=== PATIENT | male | born 1945 | race Caucasian/White ===

== ENCOUNTER 2024-03-21 09:29 | Day surgery (SDC) | payer MEDICAID ==
[2024-03-15 14:49] LABS: Absolute Basophils 0.1 K/uL (0-0.5); Absolute Eosinophils 0.1 K/uL (0-0.5); Absolute Lymphocytes (CBC) 1.3 K/uL (0.7-4.9); Absolute Monocytes 0.7 K/uL (0.1-1.3); Absolute Neutrophil 6.2 K/uL (1.8-8.0); Basophils % 0.7 % (0-1.3); Eosinophils % 1.2 % (0-4.4); Hematocrit 45.1 % (39.6-49.0); Hemoglobin 14.9 g/dL (13.6-17.9); Lymphocytes % 16.1 % (15.3-44.8); MCH 33.3 pg (27.0-35.0); MCHC 33.1 g/dL (32.0-36.0); MCV 100.7 fL (80-100); MPV 7.6 fL (7.6-11.3); Monocytes % 8.2 % (3.3-12.3); Neutrophils % 73.8 % (41.7-73.7); Nucleated Red Blood Cells % 0.1 % (0-0); Platelets 205 thou/uL (152-406); RBC Red Blood Cell Count 4.47 M/uL (4.33-5.43); Red Cell Distribution Width 14.5 % (12.1-15.2)
[2024-03-15 14:59] LABS: PT Prothrombin Time 11.1 SECONDS (9.4-12.5); PTT, Activated Partial Thromb 39.4 SECONDS (24.3-36.9); Protime INR 1.01
--- NOTE | 2024-03-15 15:20 | RAD REPORT ---
EXAM DESCRIPTION: Rachel Pa And Lat (2 Views)03/15/2024 2:45 pm CLINICAL HISTORY: Preop for cardiac catheterization COMPARISON: None FINDINGS: Lungs are moderately to markedly hyperaerated consistent with COPD. The lungs appear clear of acute infiltrate. The heart is normal size. Pleural calcifications IMPRESSION: COPD without visualization of an acute abnormality
--- NOTE | 2024-03-20 12:20 | EKG ---
Test Date: 2024-03-15 Test Time: 14:36:06 It Solutions Architect: AMANDA MEASUREMENT RESULTS: Intervals: Rate: 64 NC: 168 QRSD: 106 QT: 424 QTc: 437 [place]: P: 83 NC: 168 QRS: 37 T: 24 INTERPRETIVE STATEMENTS: Normal sinus rhythm Left ventricular hypertrophy with repolarization abnormality Cannot rule out Septal infarct, age undetermined Abnormal ECG No previous ECG available for comparison Electronically Signed On 03-20-24 12:14:22 CDT by Sriram Humphreys
[2024-03-21] MEDS: NA CHLORIDE 0.9% 500 ML ONE (09:35)
[2024-03-21] MEDS ORDERED: LIDOCAINE 1% 20 ML MDV ONE ×2 (10:33→11:29)
[2024-03-21] MEDS ORDERED: MIDAZOLAM HCL 2 MG/2 ML INJ ONE (10:33)
[2024-03-21] MEDS ORDERED: VERAPAMIL HCL 10 MG/4 ML VIAL IV ONE (10:33)
[2024-03-21] MEDS ORDERED: HEPA 1000U/500MLS 2,000 UNIT/1,000 ML BAG IV ONE (10:33)
[2024-03-21] MEDS ORDERED: ATROPINE SULF 1 MG/10 ML SYR IV ONE (10:33)
[2024-03-21] MEDS ORDERED: FENTANYL CITR 100 MCG/2 ML ONE (10:33)
[2024-03-21] MEDS ORDERED: ASPIRIN 325 MG TAB ONE (10:34)
[2024-03-21] MEDS ORDERED: TICAGRELOR 90 MG TABLET PO ONE (10:34)
[2024-03-21] MEDS ORDERED: FLUMAZENIL 0.1 MG/ML (5 mL VIAL) IV ONE (10:34)
[2024-03-21] MEDS ORDERED: CLOPIDOGREL 75 MG TABLET ONE (10:34)
[2024-03-21] MEDS ORDERED: NALOXONE 0.4 MG/ML VIAL ONE (10:34)
[2024-03-21] MEDS ORDERED: HEPARIN 5000 UNIT/ML 1 ML VIAL ONE (10:34)
[2024-03-21] MEDS ORDERED: HEPARIN 10,000 UNIT/10 ML VIAL IV ONE (10:34)
[2024-03-21 14:00] VITALS: BP 144/64; O2SAT 96
== END 2024-03-21 14:02 | disposition home or self-care (01) ==
LOC: CCL 09:29
PROVIDERS: ATTEND Internal Medicine
DX: I25.10 Atherosclerotic heart disease of native coronary artery without angina pectoris (principal); I35.0 Nonrheumatic aortic (valve) stenosis; Z53.8 Procedure and treatment not carried out for other reasons; I65.21 Occlusion and stenosis of right carotid artery; I73.9 Peripheral vascular disease, unspecified; I10 Essential (primary) hypertension; E78.2 Mixed hyperlipidemia; Z95.5 Presence of coronary angioplasty implant and graft; F17.210 Nicotine dependence, cigarettes, uncomplicated; Z79.899 Other long term (current) drug therapy
CPT/HCPCS: 93005; 85025; 80048; 36415; 83721; 85610; 85730; 71046; 93460; 76937; C1893; Q9966; J1644; J2001; J2250; J3010; J7040; 99152; 99153; J0461; J2310

== ENCOUNTER 2024-05-23 11:45 | Day surgery (SDC) | payer MEDICAID ==
[2024-05-17 14:03] LABS: Absolute Eosinophils 0.4 K/uL (0-0.5); Absolute Lymphocytes (CBC) 1.5 K/uL (0.7-4.9); Absolute Monocytes 0.6 K/uL (0.1-1.3); Absolute Neutrophil 4.8 K/uL (1.8-8.0); Basophils % 0.7 % (0-1.3); Eosinophils % 5.1 % (0-4.4); Hematocrit 42.9 % (39.6-49.0); Lymphocytes % 20.2 % (15.3-44.8); MCH 33.2 pg (27.0-35.0); MCHC 32.6 g/dL (32.0-36.0); MCV 101.7 fL (80-100); MPV 7.7 fL (7.6-11.3); Monocytes % 8.6 % (3.3-12.3); Neutrophils % 65.4 % (41.7-73.7); Platelets 197 thou/uL (152-406); RBC Red Blood Cell Count 4.22 M/uL (4.33-5.43); Red Cell Distribution Width 14.3 % (12.1-15.2)
[2024-05-17 14:07] LABS: PT Prothrombin Time 10.8 SECONDS (9.4-12.5); Protime INR 0.96
[2024-05-17 14:18] LABS: Anion Gap 8.1 mEq/L (5.0-15.0); Potassium 4.1 mEq/L (3.5-5.1)
--- NOTE | 2024-05-20 17:09 | EKG ---
Test Date: 2024-05-17 Test Time: 13:52:37 Linotype Mechanic: AMANDA MEASUREMENT RESULTS: Intervals: Rate: 73 WV: 180 QRSD: 100 QT: 398 QTc: 438 [place]: P: 88 WV: 180 QRS: 49 T: 13 INTERPRETIVE STATEMENTS: Sinus rhythm with occasional premature ventricular complexes Left ventricular hypertrophy with repolarization abnormality Abnormal ECG Compared to ECG 04/08/2024 15:06:01 Ventricular premature complex(es) now present Left ventricular hypertrophy now present Early repolarization now present Myocardial infarct finding no longer present Electronically Signed On 05-20-24 17:01:28 CDT by Derrek Felipe
[2024-05-23] MEDS ORDERED: NA CHLORIDE 0.9% 500 ML ONE ×2 (11:49→12:51)
[2024-05-23] MEDS ORDERED: LIDOCAINE 1% 20 ML MDV ONE (13:43)
[2024-05-23] MEDS ORDERED: HEPARIN 10,000 UNIT/10 ML VIAL IV ONE (13:43)
[2024-05-23] MEDS ORDERED: ATROPINE SULF 1 MG/10 ML SYR IV ONE (13:44)
[2024-05-23] MEDS ORDERED: TICAGRELOR 90 MG TABLET PO ONE (13:44)
[2024-05-23] MEDS ORDERED: ASPIRIN 325 MG TAB ONE (13:44)
[2024-05-23] MEDS ORDERED: HEPARIN 5000 UNIT/ML 1 ML VIAL ONE (13:44)
[2024-05-23] MEDS ORDERED: CLOPIDOGREL 75 MG TABLET ONE (13:44)
[2024-05-23] MEDS ORDERED: VERAPAMIL HCL 10 MG/4 ML VIAL IV ONE (13:45)
[2024-05-23] MEDS ORDERED: FENTANYL CITR 100 MCG/2 ML ONE (13:46)
[2024-05-23] MEDS ORDERED: MIDAZOLAM HCL 2 MG/2 ML INJ ONE (13:46)
[2024-05-23 17:45] VITALS: O2SAT 97
[2024-05-23 18:21] VITALS: BP 119/62
--- NOTE | 2024-05-23 19:42 | OP ---
Date of Procedure: 05/23/2024 Surgeon: DENIS CAMPBELL Procedures Performed: 1.Selective coronary angiogram. 2.Left heart catheterization. 3.Right heart catheterization. Indication: Aortic valve stenosis evaluation. Access: 1.Right radial artery 6-Sammarinese closed with TR band. 2.Right IJ 7-Sammarinese closed with manual pressure. Complications: None. Bleeding: Less than 50 mL. Anesthesia: Total sedation time was 1 hour. Description Of Procedure: After risks, benefits, and alternatives were explained, patient agreed to the procedure and signed informed consent. The [facility] prepped and draped in the usual sterile fashion. Then, I accessed right radial artery using pediatric micropuncture kit, placed 6-Sammarinese Slender sheath and then I accessed right IJ using a micr opuncture kit and ultrasound guidance, and placed 7-Sammarinese [place] sheath. Then I took a balloon ti pped 7-Sammarinese [place] catheter through the IJ access into the right atrium, right ventricle, pulmonary a rtery and wedge, obtained waveform and the pressure and then obtained cardiac output using the thermo dilutional method and then removed the [place] and then took a 5-Sammarinese [place] 4.0 catheter over a J-wire into the aortic root, engaged left main, then right coronary artery, took standard views and then I crossed the aortic valve and sent a [place] catheter and did simultaneous LV and aortic pressures an d obtained a mean gradient and pullback did not record any internal gradient. Then, I removed the ca theter and the radial sheath was removed and TR band was placed and the IJ sheath was removed and the manual pressure was used for closure with good hemostasis. Findings: 1.Coronary angiogram. a.Left main is very large and normal. b.LAD; proximal 30% to 40%, but it is a large vessel. Rest of LAD is normal. Normal diagonal branc hes. c.Left circumflex has widely patent proximal to mid stent and then the mid to distal left circumflex , there is a focal 50% stenosis. d.RCA; very large and dominant, widely patent proximal RCA stent, mid RCA has focal 40% stenosis. T he PLB and PDA appears with luminal irregularities. e.LVEDP is borderline at 40 mmHg. 2.Right heart cath numbers: RA pressure was 5. RV pressure was 23/2, mean of 7. PA pressure was 2 3/6, mean of 14. Pulmonary wedge pressure was 7, and LVEDP was 14. Cardiac output average was 4.74 L/minute. The mean gradient across the aortic valve was 18 mmHg and the aortic valve area was 1.18 s q cm. Conclusion: 1.Moderate coronary artery disease. 2.Moderate aortic valve stenosis. 3.Normal filling pressures. Recommendation: Re-evaluate the aortic valve in 6 months. SR/MODL Voice ID: [id number] Report ID: [id number]
== END 2024-05-23 18:10 | disposition home or self-care (01) ==
LOC: CCL 11:45
PROVIDERS: ATTEND Internal Medicine
DX: I35.0 Nonrheumatic aortic (valve) stenosis (principal); I25.10 Atherosclerotic heart disease of native coronary artery without angina pectoris; I65.23 Occlusion and stenosis of bilateral carotid arteries; I70.223 Atherosclerosis of native arteries of extremities with rest pain, bilateral legs; I10 Essential (primary) hypertension; E78.2 Mixed hyperlipidemia; Z95.1 Presence of aortocoronary bypass graft; F17.210 Nicotine dependence, cigarettes, uncomplicated; Z79.899 Other long term (current) drug therapy
CPT/HCPCS: 93005; 85025; 80048; 36415; 85610; 85730; 93460; 76937; C1893; Q9966; J1644; J2001; J2250; J3010; J7040 ×2; 99152; 99153; J0461

== ENCOUNTER 2025-07-11 17:22 | Emergency (ER) | payer MEDICAID ==
[2025-07-11] MEDS ORDERED: LEVALBUTEROL 1.25 MG/3 ML NEB ONE (18:01)
[2025-07-11 18:35] LABS: Influenza A Ag Negative; Influenza B Ag Negative; SARS-CoV-2 Antigen Rapid Res Negative (Negative)
[2025-07-11 18:36] LABS: Absolute Lymphocytes (CBC) 1.1 K/uL (0.7-4.9); Hematocrit 39.4 % (39.6-49.0); Hemoglobin 13.2 g/dL (13.6-17.9); MCH 32.5 pg (27.0-35.0); MCHC 33.6 g/dL (32.0-36.0); MCV 96.7 fL (80-100); MPV 8.1 fL (7.6-11.3); Nucleated RBC Absolute Count 0.0 (0-0); Nucleated Red Blood Cells % 0.1 % (0-0); RBC Red Blood Cell Count 4.07 M/uL (4.33-5.43); White Blood Count 9.00 thou/uL (4.3-10.9)
[2025-07-11 19:04] LABS: NT PRO-BNP 2062.0 pg/mL (<450); Troponin High Sensitivity 48.7 pg/mL (<58.9)
[2025-07-11 19:10] LABS: PT Prothrombin Time 12.6 SECONDS (10-13.0); PTT, Activated Partial Thromb 31.1 SECONDS (27.2-37.4); Protime INR 1.12
[2025-07-11 19:12] LABS: ALT/SGPT 22.0 U/L (16-61); AST/SGOT 18.0 U/L (15-37); Alkaline Phosphatase 79.0 U/L (45-117); Anion Gap 7.7 mEq/L (5.0-15.0); BUN Blood Urea Nitrogen 12.0 mg/dL (7-18); Glucose Level 107.0 mg/dL (74-106); Potassium 3.7 mEq/L (3.5-5.1)
--- NOTE | 2025-07-11 19:12 | RAD REPORT ---
EXAMINATION: ONE VIEW CHEST XR CLINICAL INDICATION: Male, 80 years old.,Dyspnea;Cough TECHNIQUE: Frontal chest projection is submitted. Examination is limited by patient positioning and t echnique. COMPARISON: 03/15/2024 FINDINGS: The lungs are well inflated and clear. No pneumothorax or sizable effusion. The heart is normal in s ize. Mediastinal contours are unchanged, with calcified bilateral hilar nodules. IMPRESSION: No acute intrathoracic abnormalities.
[2025-07-11 19:13] LABS: Albumin 3.2 g/dL (3.4-5.0); Albumin/Globulin Ratio 0.9 (1.1-1.8); Globulin 3.7 g/dL (2.3-3.5)
--- NOTE | 2025-07-11 21:23 | EDPHYS ---
Physician Documentation [facility] Name: Hair Ding Age: 80 yrs Sex: Male : 1945 Arrival Date: 07/11/2025 Time: 17:22 Bed 4 Private MD: ED Physician Chris Spence HPI: 07/11 18:21 This 80 yrs old Male presents to ER via Wheelchair with complaints of Flu Symptoms, rn Sore Throat, Painful Cough. 18:21 Patient reports 5 days of cough, sore throat, myalgias, subjective fever and chills. No rn shortness of breath. Does have a long history of smoking but never diagnosed with COPD or needed nebulizer treatments. Denies any abdominal pain. No vomiting. 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 Historical: - Allergies: 17:31 No Known Allergies; ll1 - PMHx: 17:31 Hypertensive disorder; Hypercholesterolemia; Gout; ll1 - PSHx: 17:31 6 heart stents; aorta replaced; ll1 - Immunization history:: Adult Immunizations up to date. - Infectious Disease History:: Denies. - Social history:: Smoking status: Reported history of juuling and/or vaping. Patient/guardian denies using tobacco, Stopped _ months ago 16. - Family history:: not pertinent. - Hospitalizations: : No recent hospitalization is reported. ROS: 18:21 Constitutional: + subjective fever/chills Cardiovascular: Negative for chest pain, rn palpitations, and edema, Respiratory: + cough Abdomen/GI: Negative for abdominal pain, nausea, vomiting, diarrhea, and constipation, Neuro: Negative for headache, weakness, numbness, tingling, and seizure, Exam: 18:21 Constitutional: This is a well developed, well nourished patient who is awake, alert, rn and in no acute distress. Cardiovascular: Regular rate and rhythm. No pulse deficits. Loud systolic murmur (patient states known murmur" Respiratory: Mild tachypnea but speaking full sentences. No retractions. Abdomen/GI: Soft, non-tender MS/ Extremity: Pulses equal, no cyanosis. Neurovascular intact. Full, normal range of motion. Equal circumference. Neuro: Awake and alert, GCS 15 18:34 ECG was reviewed by the Attending Physician. rn Vital Signs: 17:33 BP 178 / 85; Pulse 98; Resp 17; Temp 98.5; Pulse Ox 98% on R/A; Weight 96.16 kg; Height ll1 6 ft. 5 in. ; Pain /10; 18:17 BP 143 / 73; Pulse 88; Resp 16; Pulse Ox 99% on R/A; kb4 20:20 BP 169 / 82; Pulse 90; Resp 18; Pulse Ox 92% on R/A; af3 21:37 BP 157 / 86; Pulse 93; Resp 18; Pulse Ox 95% on R/A; af3 17:33 Body Mass Index 25.14 (96.16 kg, 195.58 cm) ll1 17:33 Pain Scale: Adult ll1 MDM: 17:40 Medical Screening Exam initiated rn 21:26 Differential diagnosis: Allergic rhinitis, bronchitis, costochondritis, esophagitis, sp4 pleurisy, pneumonia. Data reviewed: vital signs, nurses notes, lab test result(s), radiologic studies, plain films. 21:37 ED course: EXAMINATION: ONE VIEW CHEST XR CLINICAL INDICATION: Male, 80 years sp4 old.,Dyspnea;Cough TECHNIQUE: Frontal chest projection is submitted. Examination is limited by patient positioning and technique. COMPARISON: 03/15/2024 FINDINGS: The lungs are well inflated and clear. No pneumothorax or sizable effusion. The heart is normal in size. Mediastinal contours are unchanged, with calcified bilateral hilar nodules. IMPRESSION: No acute intrathoracic abnormalities.. 07/11 17:51 Order name: BNP; Complete Time: 21:12 rn 07/11 17:51 Order name: Blood Culture Adult (2) rn 07/11 17:51 Order name: CBC with Diff; Complete Time: 18:43 rn 07/11 17:51 Order name: CMP; Complete Time: 21:12 rn 07/11 17:51 Order name: Lactate w/ 2H reflex if indic.; Complete Time: 21:12 07/11 17:51 Order name: Protime (+inr); Complete Time: 21:12 rn 07/11 17:51 Order name: Ptt, Activated; Complete Time: 21:12 rn 07/11 17:51 Order name: Troponin HS; Complete Time: 21:12 07/11 17:51 Order name: COVID-19 Ag + Flu A+B Ag; Complete Time: 18:43 rn 07/11 17:51 Order name: Group A Streptococcus Rapid; Complete Time: 18:43 rn 07/11 18:37 Order name: Throat Culture EDCT 07/11 17:51 Order name: Chest Single View XRAY; Complete Time: 21:12 rn 07/11 17:51 Order name: Accucheck; Complete Time: 18:17 rn 07/11 17:51 Order name: Cardiac monitoring; Complete Time: 18:17 rn 07/11 17:51 Order name: EKG - Nurse/Tech; Complete Time: 18:17 rn 07/11 17:51 Order name: IV Saline Lock - Large Bore; Complete Time: 18:17 rn 07/11 17:51 Order name: Labs collected and sent; Complete Time: 18:17 rn 07/11 17:51 Order name: O2 Per Protocol; Complete Time: 18:17 rn 07/11 17:51 Order name: O2 Sat Monitoring; Complete Time: 18:17 rn 07/11 17:51 Order name: Vital Signs; Complete Time: 18:17 rn EC:34 Rate is 93 beats/min. Rhythm is regular. QRS [place] is Normal. ID interval is normal. QRS rn interval is normal. QT interval is normal. No Q waves. T waves are Normal. No ST changes noted. Clinical impression: NSR w/ Non-specific ST/T Changes. Interpreted by me. Reviewed by me. Administered Medications: 18:17 Drug: Levalbuterol Inhalation 1.25 mg Inhalation once Route: Inhalation; kb4 20:24 Follow up: Response: No adverse reaction af3 Disposition Summary: 07/11/25 21:23 Discharge Ordered Notes: Location: Home sp4 Problem: new sp4 Symptoms: have improved sp4 Condition: Stable sp4 Diagnosis - Acute pharyngitis, acute cough, acute upper respiratory infection, sp4 Followup: sp4 - With: Private Physician - When: 7 - 10 days - Reason: Recheck today's complaints Discharge Instructions: - Discharge Summary Sheet sp4 - Pharyngitis, [id number] sp4 - Viral Illness, Adult sp4 Forms: - Patient Portal Instructions sp4 Prescriptions: - Ventolin HFA 90 mcg/actuation Inhalation HFA Aerosol Inhaler - inhale 2 puff INHALATION route 4 times per day as needed for shortness of sp4 breath or wheezing; 1 unit; Refills: 0, Product Selection Permitted - dextromethorphan-guaifenesin 20-400 mg Oral tablet - take 1 tablet ORAL route every 4 hours as needed for cough; 60 tablet; Refills: sp4 0, Product Selection Permitted - Ibuprofen 600 mg Oral Tablet - take 1 tablet ORAL route every 6 hours As needed take with food; 30 tablet; sp4 Refills: 0, Product Selection Permitted - Zithromax Z-Jackson 250 mg Oral Tablet - take 1 tablet ORAL route as directed for 5 days Day 1 - take two (2) tablets sp4 one time. Day 2, 3, 4 , 5 take one (1) tablet once daily.; 6 tablet; Refills: 0, Product Selection Permitted Signatures: Dispatcher [employer] EDMS Surinder Hunt MD MD rn Lewis, Lynsay, RN RN ll1 Chris Spence MD MD sp4 Brit aPce RN RN kb4 Elizabeth Dodson RN af3 Corrections: (The following items were deleted from the chart) 17:52 17:52 PROBNP+C.LAB.BRZ ordered. EDCT EDMS 17:52 17:52 BLOOD CULTURE*+BA.LAB.BRZ ordered. EDMS EDMS 17:52 17:52 CBC+H.LAB.BRZ ordered. EDCT EDMS 17:52 17:52 COMPREHENSIVE METABOLIC PANEL+C.LAB.BRZ ordered. EDCT EDMS 17:52 17:52 LACTATE+C.LAB.BRZ ordered. EDCT EDMS 17:52 17:52 PROTIME (+INR)+COAG.LAB.BRZ ordered. EDCT EDMS 17:52 17:52 PTT, ACTIVATED+COAG.LAB.BRZ ordered. EDCT EDMS 17:52 17:52 Troponin High Sensitivity+C.LAB.BRZ ordered. EDCT EDMS 17:52 17:52 COVID-19 Ag + Flu A+B Ag+I.LAB.BRZ ordered. EDCT EDMS 17:52 17:52 Group A Streptococcus Rapid Sc+I.LAB.BRZ ordered. EDCT EDMS 17:52 17:52 Chest Single View+RAD.RAD.BRZ ordered. EDCT EDMS 18:22 18:21 Patient reports 5 days of cough, sore throat, myalgias, subjective fever and rn chills. No shortness of breath. Does have a long history of smoking but never diagnosed with COPD or needed nebulizer treatments. Denies any abdominal pain. No vomiting.. rn
--- NOTE | 2025-07-11 21:23 | ER ---
Nurse's Notes [facility] Name: Hair Ding Age: 80 yrs Sex: Male : 1945 Arrival Date: 07/11/2025 Time: 17:22 Bed 4 Private MD: Diagnosis: Acute pharyngitis, acute cough, acute upper respiratory infection, Presentation: 07/11 17:33 Chief complaint: Patient states: Sore throat, painful cough since Monday. Just not ll1 getting better yet. No appetite and has diarrhea. Coronavirus screen: Client denies travel out of the [place] in the last 14 days. congestion, cough unrelated to allergies, difficulty breathing, fatigue, Client presents with at least one sign or symptom that may indicate coronavirus-19. Standard/surgical mask placed on the client. Ebola Screen: Patient denies travel to an Ebola-affected area in the 21 days before illness onset. Initial Sepsis Screen: Does the patient meet any 2 criteria? No. Patient's initial sepsis screen is negative. Does the patient have a suspected source of infection? No. Patient's initial sepsis screen is negative. Risk Assessment: Do you want to hurt yourself or someone else? Patient reports no desire to harm self or others. Onset of symptoms was July 07, 2025. 17:33 Method Of Arrival: Wheelchair ll1 17:33 Acuity: KIERA 3 ll1 Historical: - Allergies: 17:31 No Known Allergies; ll1 - PMHx: 17:31 Hypertensive disorder; Hypercholesterolemia; Gout; ll1 - PSHx: 17:31 6 heart stents; aorta replaced; ll1 - Immunization history:: Adult Immunizations up to date. - Infectious Disease History:: Denies. - Social history:: Smoking status: Reported history of juuling and/or vaping. Patient/guardian denies using tobacco, Stopped _ months ago 16. - Family history:: not pertinent. - Hospitalizations: : No recent hospitalization is reported. Screenin:49 [facility] ED Fall Risk Assessment (Adult) History of falling in the last 3 months, kb4 including since admission No falls in past 3 months (0 pts) Confusion or Disorientation No (0 pts) Intoxicated or Sedated No (0 pts) Impaired Gait No (0 pts) Mobility Assist Device Used No (0 pt) Altered Elimination No (0 pt) Score/Fall Risk Level 0 - 2 = Low Risk. Abuse screen: Denies threats or abuse. Denies injuries from another. Nutritional screening: No deficits noted. Tuberculosis screening: No symptoms or risk factors identified. Assessment: 17:49 General: Appears in no apparent distress. uncomfortable, Behavior is calm, cooperative. kb4 Pain: Complains of pain in sinuses, chest, throat Pain does not radiate. Pain began 2-3 days ago. Cardiovascular: Patient's skin is warm and dry. Respiratory: Airway is patent Respiratory effort is even, unlabored, Respiratory pattern is regular, symmetrical. Derm: Skin is pink, warm \T\ dry. 19:15 General: Appears in no apparent distress. comfortable, well groomed, well developed, af3 Behavior is calm, cooperative, appropriate for age. Pain: Denies pain. Neuro: Level of Consciousness is awake, alert, obeys commands, Oriented to person, place, time, situation, Appropriate for age. Cardiovascular: Patient's skin is warm and dry. Respiratory: Airway is patent Respiratory effort is even, unlabored, Respiratory pattern is regular, symmetrical. Derm: Skin is intact, Skin is pink, warm \T\ dry. 20:30 Reassessment: Patient appears in no apparent distress at this time. No changes from af3 previously documented assessment. Patient and/or family updated on plan of care and expected duration. Pain level reassessed. 21:37 Reassessment: Patient appears in no apparent distress at this time. No changes from af3 previously documented assessment. Patient and/or family updated on plan of care and expected duration. Pain level reassessed. Vital Signs: 17:33 BP 178 / 85; Pulse 98; Resp 17; Temp 98.5; Pulse Ox 98% on R/A; Weight 96.16 kg; Height ll1 6 ft. 5 in. ; Pain 1/10; 18:17 BP 143 / 73; Pulse 88; Resp 16; Pulse Ox 99% on R/A; kb4 20:20 BP 169 / 82; Pulse 90; Resp 18; Pulse Ox 92% on R/A; af3 21:37 BP 157 / 86; Pulse 93; Resp 18; Pulse Ox 95% on R/A; af3 17:33 Body Mass Index 25.14 (96.16 kg, 195.58 cm) ll1 17:33 Pain Scale: Adult ll1 ED Course: 17:23 Patient arrived in ED. cj3 17:31 Arm band placed on Patient placed in an exam room, on a stretcher. ll1 17:35 Triage completed. ll1 17:40 Surinder Hunt MD is Attending Physician. rn 17:49 Brit Pace RN is Primary Nurse. kb4 17:49 Patient has correct armband on for positive identification. Bed in low position. Call kb4 light in reach. Side rails up X2. Client placed on continuous cardiac and pulse oximetry monitoring. NIBP monitoring applied. 17:49 No provider procedures requiring assistance completed. Patient maintains SpO2 kb4 saturation greater than 95% on room air. 18:37 Chest Single View XRAY In Process Unspecified. EDMS 19:00 Report received from ERIKA Perea. af3 21:12 Attending Physician role handed off by Surinder Hunt MD sp4 21:12 Chris Spence MD is Attending Physician. sp4 21:38 IV discontinued, intact, bleeding controlled, No redness/swelling at site. Pressure af3 dressing applied. Administered Medications: 18:17 Drug: Levalbuterol Inhalation 1.25 mg Inhalation once Route: Inhalation; kb4 20:24 Follow up: Response: No adverse reaction af3 Medication: 17:49 VIS not applicable for this client. kb4 Outcome: 21:23 Discharge ordered by . sp4 21:37 Discharged to home ambulatory, with family, af3 21:37 Condition: stable 21:37 Discharge instructions given to patient, family, Instructed on discharge instructions, follow up and referral plans. medication usage, Demonstrated understanding of instructions, follow-up care, medications, Prescriptions given X 4, 21:38 Patient left the ED. af3 Signatures: Dispatcher [employer] EDMS Surinder Hunt MD MD rn Lewis, Lynsay, RN RN ll1 Chris Spence MD MD sp4 Elizabeth Dodson RN RN af3 Brit Pace RN RN kb4 Marylu Campuzano cj3
[2025-07-11 21:42] VITALS: TEMP 98.5
[2025-07-11 21:46] VITALS: BP 157/86; O2SAT 95
== END 2025-07-11 21:38 | disposition home or self-care (01) ==
LOC: ER 17:22
DX: J06.9 Acute upper respiratory infection, unspecified (principal); R05.1 Acute cough; Z11.52 Encounter for screening for COVID-19; Z95.818 Presence of other cardiac implants and grafts
CPT/HCPCS: 93005; 87040 ×2; 87070; 85025; 36415; 85610; 83605; 85730; 84484; 80053; 83880; 71045; 99284; 87428; J7614